=== PATIENT | male | born 1970 | race Native Hawaiian/Other Pacific Islander ===

== ENCOUNTER 2017-06-08 13:28 | Outpatient (CLI) | payer OTHER ==
[2017-06-08 13:54] LABS: PLATELET COUNT 286 K/uL (142-355)
[2017-06-08 14:10] LABS: POTASSIUM 4.3 mmol/L (3.6-5.2); SODIUM 138 mmol/L (136-145)
== END 2017-06-08 22:04 | disposition home or self-care (01) ==
LOC: LAB 13:28
PROVIDERS: Nurse Practitioner Family
DX: Z00.00 Encounter for general adult medical examination without abnormal findings (principal); R41.82 Altered mental status, unspecified; R53.81 Other malaise; R53.83 Other fatigue; Z79.899 Other long term (current) drug therapy; Z51.81 Encounter for therapeutic drug level monitoring
CPT/HCPCS: 80053; 80061; 83036; 84436; 84443; 85027

== ENCOUNTER 2017-11-06 13:45 | Outpatient (CLI) | payer OTHER ==
[2017-11-06 13:59] LABS: PLATELET COUNT 275 K/uL (142-355)
[2017-11-06 14:12] LABS: POTASSIUM 4.2 mmol/L (3.6-5.2)
== END 2017-11-06 19:51 | disposition home or self-care (01) ==
LOC: LAB 13:45
PROVIDERS: Nurse Practitioner Family
DX: R41.82 Altered mental status, unspecified (principal); E78.2 Mixed hyperlipidemia; R53.81 Other malaise; R53.83 Other fatigue; Z79.899 Other long term (current) drug therapy; Z51.81 Encounter for therapeutic drug level monitoring
CPT/HCPCS: 80053; 80061; 83036; 84436; 84443; 85027

== ENCOUNTER 2017-12-14 11:26 | Outpatient (CLI) | payer OTHER | END 2017-12-14 22:50 | disposition home or self-care (01) | LOC: US 11:26 | DX: E05.80 Other thyrotoxicosis without thyrotoxic crisis or storm (principal) ==

== ENCOUNTER 2018-06-15 08:53 | Outpatient (CLI) | payer OTHER ==
[2018-06-15 09:50] LABS: POTASSIUM 4.2 mmol/L (3.6-5.2)
[2018-06-15 10:16] LABS: PLATELET COUNT 279 K/uL (142-355)
== END 2018-06-15 20:23 | disposition home or self-care (01) ==
LOC: LABW 08:53
PROVIDERS: Physician Assistant
DX: E78.2 Mixed hyperlipidemia (principal); J30.1 Allergic rhinitis due to pollen; E05.90 Thyrotoxicosis, unspecified without thyrotoxic crisis or storm
CPT/HCPCS: 36415; 80053; 80061; 84439; 84443; 85027